=== PATIENT | male | born 1995 | race Caucasian/White ===

== ENCOUNTER 2024-10-04 16:46 | Inpatient (IN) ==
[2024-10-04 18:48] LABS: Basophils # (auto) 0.04 K/uL (0.00-0.20); Basophils % (auto) 0.9 %; Eosinophils % (auto) 2.3 %; Hematocrit (blood only) 40.9 % (42.0-52.0); Hemoglobin 13.2 g/dl (14.0-18.0); Immature Granulocytes # (auto) 0.01 K/uL (0.01-0.20); Immature Granulocytes % (auto) 0.2 %; Lymphocytes % (auto) 39.3 %; Mean Corpuscular Hgb Conc 32.3 g/dL (32.0-36.0); Mean Corpuscular Volume 71.4 fL (80.0-100.0); Mean Platelet Volume 9.1 fL (9.4-12.4); Monocytes # (auto) 0.25 K/uL (0.11-0.59); Monocytes % (auto) 5.8 %; Neutrophils # (auto) 2.23 K/uL (1.40-6.50); Neutrophils % (auto) 51.5 %; Platelet Count 375 K/uL (130-400); RDW Coefficient of Variation 14.8 % (11.5-14.5); RDW Standard Deviation 37.4 fL (36.4-46.3); Red Blood Count 5.73 M/uL (4.70-6.10); White Blood Count 4.33 K/ul (4.8-10.8)
[2024-10-04 18:55] LABS: Anion Gap 9 (3-11); BUN Creatinine Ratio 13.3 (10-20); Blood Urea Nitrogen 14 mg/dl (6-23); Calcium 9.4 mg/dl (8.6-10.3); Carbon Dioxide 25 mmol/L (21-32); Chloride 104 mmol/L (98-107); Creatinine Clr Calc Pharmacy 116.3 ml/min; Glucose 87 mg/dl (70-99(Fasting)); Potassium 4.4 mmol/L (3.5-5.1); Sodium 138 mmol/L (136-145)
[2024-10-04 19:07] LABS: Prothrombin Time 10.8 Seconds (9.0-12.0)
[2024-10-04] MEDS: OPTIRAY 320 125ml IV ONE (19:10)
--- NOTE | 2024-10-04 19:36 | Emergency Department Note ---
Impression & Plan Vision loss, left eye, Symptoms of cerebrovascular accident (CVA), Personal history of DVT (deep vein thrombosis) ED Provider Note CHIEF COMPLAINT: Left eye vision loss x 3 days 28-year-old male patient with past medical history of DVT/PE on Xarelto, cocaine and K2 use patient presents to the emergency department with complaints of left eye vision loss x 3 days. The patient is currently at [facility] for inpatient drug rehabilitation. He states he was not very compliant with his medications prior to his admission however was definitely off of his Xarelto x 3-4 days in the interim. He states they have been treating her for pinkmerae with antibiotic eyedrops however today he states he was begging the physician for transfer to the hospital. He denies any recent substance use since he has been in rehab x 10 days. He denies any headache, trauma, other known eye pathology, he denies taking any blood pressure medications. REVIEW OF SYSTEMS: A review of systems was performed with positives and pertinent negatives listed in the history of present illness. 10 systems were reviewed and are otherwise negative. ALLERGIES: see below MEDICATIONS: see below PMH: see below SOCIAL HISTORY: see below DDx: Central retinal artery occlusion, central retinal vein occlusion, acute glaucoma, retinal detachment, vitreous hemorrhage among others. PHYSICAL EXAM: Vital signs reviewed. Noted to be hypertensive. General: Well-appearing 28-year-old male, in no significant distress. HEENT: No scleral icterus, PERRLA, neck supple. Left eye conjunctival injection, EOMI. Cardiovascular: Regular rate and rhythm, no extra sounds. Pulmonary: Clear to auscultation bilaterally, normal work of breathing. Abdomen: Soft, nontender, nondistended, positive bowel sounds. Musculoskeletal: Atraumatic, no peripheral edema. Neurologic: Patient awake alert and oriented x 3, speech is clear. Cranial nerves II through XII are grossly intact. Negative pronator drift. Intact [id number]. Moves all extremities equally. Skin: Warm, dry, no rash EMERGENCY DEPARTMENT COURSE/MDM: This patient was evaluated and appeared to be in no significant distress. IV access was obtained and laboratory work was drawn. The patient was placed on the director cardiac noted to be in a normal sinus rhythm. Blood pressure was noted to be elevated. Patient's visual acuity is normal in the right eye, 20/200 in the left eye. Intraocular pressures are approximately 13 bilaterally. Slit-lamp exam was performed by Graciela Zaragoza PA-C and fairly normal by report. Please see her notes for further documentation. Retinal scans were performed and to my interpretation revealed no evidence of retinal detachment. There is no ophthalmology coverage at our facility this evening. As the patient symptoms have been present for 3 days and he is currently back on his anticoagulation, there did not seem to be any urgency to the consultation however I have greater concerns over the possibility of embolic stroke causing the patient's symptoms. CT angiogram of the head was performed and reveals no aneurysm or large vessel occlusion, there is no evidence of acute intracranial pathology. I did discuss the findings with Dr. Pascual of the hospitalist service who was agreed to evaluate the patient for admission and further management. The patient is aware of the plan and agrees. MONITORING: An order for cardiac monitoring was placed and the patient is noted to be in a normal sinus rhythm at 64 beats per minute. RADIOLOGY: Head CT to my interpretation reveals no evidence of acute intracranial abnormality. Otherwise defer to radiology's over read. CT angio of the head per radiology reveals no aneurysm or large vessel occlusion. EKG: To my interpretation reveals normal sinus rhythm at 62 bpm, QTc of 412. ST segment elevation consistent with early repolarization. No PVC, no PAC. DISPOSITION: Admission Past Med/Surg History Problem List (Updated 10/05/24 @ 02:36 by Anna Rodriguez MD) Personal history of DVT (deep vein thrombosis) (Acute) Symptoms of cerebrovascular accident (CVA) (Acute) Hypertension VTE (venous thromboembolism) Vision loss, left eye (Acute) Medical History DVT (deep venous thrombosis) Pulmonary embolism Surgical History No significant past surgical history Family History Other Family history non-contributory Social History Smoking Status: Current every day smoker Tobacco Type: E-cigarettes / Vaping Hx Alcohol Use: No Hx Substance Use: Yes Last Used Substance: Days (ago) Last Used Substance Other:: 10 days (?) Preferred Language: French Communication Ability: Effective Food Tester Required: No Beliefs That Will Affect Care: None Current Living Situation Comment: currently at inpatient drub rehab but lives in [place] with and kids Feels Safe at Home: Yes Assistive Devices: None Allergies Allergies Allergy/AdvReac Type Severity Reaction Status Date / Time No Known Drug Allergies Allergy Mild Verified 10/04/24 22:26 Home Meds Home Medications Medication Instructions Recorded Confirmed rivaroxaban 20 mg tablet (Xarelto) 20 mg PO DAILY 10/04/24 10/04/24 Results & Data (ED) Vital Signs Vital Signs - 24 hr 10/04/24 16:51 10/04/24 18:36 10/04/24 19:00 Temperature 36.9 C Temperature Source Temporal Artery Scan Pulse Rate 86 69 Pulse Rate [Apical] 64 Pulse Rhythm [Apical] Regular Pulse Strength [Apical] Normal Respiratory Rate 19 20 Respiratory Effort / Characteristics Non-Labored Spontaneous Non-Labored Spontaneous Respiratory Depth Normal Normal Respiratory Pattern Regular Blood Pressure 168/115 H Blood Pressure [Right Arm] 146/106 H Blood Pressure Mean 132 Blood Pressure Mean [Right Arm] 119 Blood Pressure Position [Right Arm] Lying Pulse Oximetry 99 98 Oxygen Delivery Method Room Air Sepsis Recent Fever Within 48 Hours No Sepsis New/Unexplained Change in Mental Status N/A Sepsis Action Taken by Nursing No Action Required 10/04/24 21:28 Temperature Temperature Source Pulse Rate Pulse Rate [Apical] 56 L Pulse Rhythm [Apical] Regular Pulse Strength [Apical] Normal Respiratory Rate 20 Respiratory Effort / Characteristics Non-Labored Spontaneous Respiratory Depth Normal Respiratory Pattern Regular Blood Pressure Blood Pressure [Right Arm] 157/119 H Blood Pressure Mean Blood Pressure Mean [Right Arm] 131 Blood Pressure Position [Right Arm] Lying Pulse Oximetry 97 Oxygen Delivery Method Room Air Sepsis Recent Fever Within 48 Hours Sepsis New/Unexplained Change in Mental Status Sepsis Action Taken by Fdc Medications Current Medication List: was personally reviewed by me Laboratory Data Attestation: I reviewed the patient's lab results. 10/04/24 18:10 10/04/24 18:10 Lab Results 10/04/24 Range/Units 18:10 WBC 4.33 L (4.8-10.8) K/ul RBC 5.73 (4.70-6.10) M/uL Hgb 13.2 L (14.0-18.0) g/dl Hct 40.9 L (42.0-52.0) % MCV 71.4 L (80.0-100.0) fL MCH 23.0 L (25.0-34.0) pg MCHC 32.3 (32.0-36.0) g/dL RDW Std Deviation 37.4 (36.4-46.3) fL RDW Coeff of Simona 14.8 H (11.5-14.5) % Plt Count 375 (130-400) K/uL MPV 9.1 L (9.4-12.4) fL Immature Gran % (Auto) 0.2 % Neut % (Auto) 51.5 % Lymph % (Auto) 39.3 % [place] % (Auto) 5.8 % Eos % (Auto) 2.3 % Baso % (Auto) 0.9 % Neut # (Auto) 2.23 (1.40-6.50) K/uL Lymph # (Auto) 1.70 (1.20-3.40) K/uL [place] # (Auto) 0.25 (0.11-0.59) K/uL Eos # (Auto) 0.10 (0.00-0.50) K/uL Baso # (Auto) 0.04 (0.00-0.20) K/uL Immature Gran # (Auto) 0.01 (0.01-0.20) K/uL ESR 20 H (0-15) mm/hr PT 10.8 (9.0-12.0) Seconds INR 1.0 (0.9-1.1) Sodium 138 (136-145) mmol/L Potassium 4.4 (3.5-5.1) mmol/L Chloride 104 (98-107) mmol/L Carbon Dioxide 25 (21-32) mmol/L Anion Gap 9 (3-11) BUN 14 (6-23) mg/dl Creatinine 1.05 (0.6-1.4) mg/dl Est Cr Clr Drug Dosing 116.3 ml/min eGFR 97.93 BUN/Creatinine Ratio 13.3 (10-20) Glucose 87 (70-99(Fasting)) mg/dl Calcium 9.4 (8.6-10.3) mg/dl C-Reactive Protein < 0.50 (0-0.5) mg/dl Administered Medications Discontinued Medications Gadobutrol (Gadobutrol 65ml Vial) 9 ml IV ONCE ONE Stop: 11/18/24 00:45 Last Admin: 10/05/24 00:44 Dose: 9 ml Documented By: CATHERINE Ioversol (Optiray 320 125ml) 115 ml IV ONCE ONE Stop: 10/04/24 19:10 Last Admin: 10/04/24 19:10 Dose: 115 ml Documented By: CHRISTOPHER Imaging Data Radiologist's Impression: Head CT 10/04/24 18:06 CR Exam(s): CT HEAD Without Contrast EXAM: CT Head Without Intravenous Contrast CLINICAL HISTORY: Reason for exam: vision loss L eye 3 days. TECHNIQUE: Axial computed tomography images of the head/brain without intravenous contrast. CTDI is 65.32 mGy and DLP is 961.59 mGy-cm. Automated exposure control was utilized for the study. A dose lowering technique was utilized adhering to the principles of ALARA. COMPARISON: None. FINDINGS: Brain: No mass effect or acute infarct. No acute hemorrhage. No abnormal density in the brain parenchyma. Ventricles: No hydrocephalus or midline shift. Bones/joints: No skull fracture. Soft tissues: No scalp hematoma. Visualized Sinuses: Clear. Mastoid air cells: No mastoid effusion. IMPRESSION: 1. No acute intracranial abnormality. Communications: Call Doctor Stroke Electronically signed by: Laura Benitez M.D. 10/04/24 20:34 PM Head CTA 10/04/24 18:06 CR Exam(s): CTA HEAD With Contrast IV Amt: 115 ml optiray 320 EXAM: CT Angiography Head With Intravenous Contrast CLINICAL HISTORY: Reason for exam: L eye vision loss x 3 days. TECHNIQUE: Axial computed tomographic angiography images of the head with intravenous contrast. CTDI is 99.14 mGy and DLP is 1115.24 mGy-cm. Automated exposure control was utilized for the study. A dose lowering technique was utilized adhering to the principles of ALARA. MIP reconstructed images were created and reviewed. CONTRAST: Patient received 115 ml optiray 320 of IV contrast COMPARISON: Head CT done earlier. FINDINGS: Right internal carotid artery: Patent. Right anterior cerebral artery: Patent. Right middle cerebral artery: Patent. Right posterior cerebral artery: Patent. Right vertebral artery: Patent. Left internal carotid artery: Patent. Left anterior cerebral artery: Patent. Left middle cerebral artery: Patent. Left posterior cerebral artery: Patent. Left vertebral artery: Patent. Basilar artery: Patent. Other: IMPRESSION: 1. No aneurysm or large vessel occlusion. Communications: Call Doctor Stroke Electronically signed by: Laura Benitez M.D. 10/04/24 20:36 PM Discharge Plan Visit Data Chief Complaint: Eye Problems Stated Complaint: LOST SIGHT IN L EYE ED Provider: Anna Rodriguez Discharge Problem: Vision loss, left eye, Symptoms of cerebrovascular accident (CVA), Personal history of DVT (deep vein thrombosis) Patient Disposition: Admitted As Inpatient Discharge Instructions Interventions: ED Discharge Assessment Last Done: 10/04/24 23:08
--- NOTE | 2024-10-04 20:27 | Emergency Department Note ---
ED Visit Note EMERGENCY DEPARTMENT PROCEDURE NOTE: I was asked by Dr. Rodriguez to perform slit-lamp and puff tonometry on this 28-year-old patient who presented to the emergency department with acute loss of vision in the left eye 3 days ago. Slit-lamp examination revealed no hyphema. Puff tonometry noted average intraocular pressure on the right 13, left 12.5.
--- NOTE | 2024-10-04 20:36 | CT Scan Report ---
Exam(s): CT HEAD Without Contrast EXAM: CT Head Without Intravenous Contrast CLINICAL HISTORY: Reason for exam: vision loss L eye 3 days. TECHNIQUE: Axial computed tomography images of the head/brain without intravenous contrast. CTDI is 65.32 mGy and DLP is 961.59 mGy-cm. Automated exposure control was utilized for the study. A dose lowering technique was utilized adhering to the principles of ALARA. COMPARISON: None. FINDINGS: Brain: No mass effect or acute infarct. No acute hemorrhage. No abnormal density in the brain parenchyma. Ventricles: No hydrocephalus or midline shift. Bones/joints: No skull fracture. Soft tissues: No scalp hematoma. Visualized Sinuses: Clear. Mastoid air cells: No mastoid effusion. IMPRESSION: 1. No acute intracranial abnormality. Communications: Call Doctor Stroke Electronically signed by: Laura Benitez M.D. 10/04/24 20:34 PM
--- NOTE | 2024-10-04 20:37 | CT Scan Report ---
Exam(s): CTA HEAD With Contrast IV Amt: 115 ml optiray 320 EXAM: CT Angiography Head With Intravenous Contrast CLINICAL HISTORY: Reason for exam: L eye vision loss x 3 days. TECHNIQUE: Axial computed tomographic angiography images of the head with intravenous contrast. CTDI is 99.14 mGy and DLP is 1115.24 mGy-cm. Automated exposure control was utilized for the study. A dose lowering technique was utilized adhering to the principles of ALARA. MIP reconstructed images were created and reviewed. CONTRAST: Patient received 115 ml optiray 320 of IV contrast COMPARISON: Head CT done earlier. FINDINGS: Right internal carotid artery: Patent. Right anterior cerebral artery: Patent. Right middle cerebral artery: Patent. Right posterior cerebral artery: Patent. Right vertebral artery: Patent. Left internal carotid artery: Patent. Left anterior cerebral artery: Patent. Left middle cerebral artery: Patent. Left posterior cerebral artery: Patent. Left vertebral artery: Patent. Basilar artery: Patent. Other: IMPRESSION: 1. No aneurysm or large vessel occlusion. Communications: Call Doctor Stroke Electronically signed by: Laura Benitez M.D. 10/04/24 20:36 PM
--- NOTE | 2024-10-04 22:42 | History & Physical Report ---
Date of Service October 04, 2024 Assessment & Plan (1) Vision loss, left eye: Plan: 28yo male with history of VTE on Xarelto anticoagulation presenting with visual loss in the left eye. Patient missed several doses of his Xarelto earlier in the month and was taking it sporadically prior to that but has been taking it daily since 09/26/24. Vision loss in left eye preceded by 3 days of redness, tearing, pain and blurry vision. Visual acuity 20/200 in LEFT eye. Slit lamp exam with no Hyphema. Eye pressure LEFT eye 12.5. Ddx to include: ocular stroke, CRAO, CRVO - concerning in patient with h/o prior VTE and non-adherence with his anticoagulation. Possible uveitis, optic neuritis -Admit to medical with telemetry -Check ESR, CRP although patient young for GCA -Check MRI brain - visualize optic nerve. 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 He is to be taking Xarelto 20mg po daily, reports he has been non-compliant with this medication in the past. -Continue Xarelto 20mg po daily -Continue outpatient followup with Hematology in [place], [place] as directed (3) Hypertension: Plan: Patient with elevated blood pressure. Was prescribed Amlodipine in the past but has not been taking it -Resume Amlodipine 5mg po daily -Monitor BP Plan Patient is from [place], [place] - voluntarily attending drug rehabilitation program at [facility]. He wants to return home to [place] - states that there is a bus that leaves [place] on Saturday, 10/06 at 06:00 that he wants to be on. He will need to return to [facility] to collect his belongings prior to leaving. History of Present Illness Chief Complaint: visual loss left eye Primary Care Provider: NO PCP Shant Prabhakar is a 28yo male presenting with visual loss in the left eye. Patient with history of prior VTE - diagnosed with Pulmonary Emboli in 2016 and started on Xarelto. Patient admits to medication non-adherence. He was diagnosed with LE DVT in 2022 but was not taking his Xarelto as prescribed. He does not recall having a hypercoagulability panel performed in the past. He does follow with Hematology in [place] and is on lifelong anticoagulation due to recurrent VTE. Mr. Prabhakar is from [place], [place]. He is voluntarily attending drug rehab at [facility] for cocaine and K2 abuse. He arrived at [facility] on 09/22 and reports that he did not get his Xarelto until 09/25 or 09/26 but has been taking it daily as directed since 09/26. On 10/01 patient developed redness and pain in the left eye. He was told that he had pink eye and was prescribed Gentamicin eye drops which he used with no improvement. He reports his symptoms progressed with increasing blurriness to his vision. He saw a physician on 10/03/24 and was started on Keflex for presumed eye infection. He took a couple of doses but then developed some nausea. This morning when patient woke up he was unable to see anything out of his left eye. Patient reports redness, tearing of the left eye. Pain in the eye, pain with eye movement and pain under the left eye. He also has a dull left sided headache. No trauma to the eye. No history of eye disease. Does admit to some cramping in his thighs and calfs lately. He denies fever, chills, chest pain, palpitations, nausea, vomiting, abdominal pain. No numbness, tingling, weakness. Patient with no history of IVDU. Does not wear contacts. No known family history of VTE or sickle cell disease/trait Slit lamp examination performed by ER - revealed no hyphema Puff tonometry with average IOP on RIGHT 13 and LEFT 12.5 Allergies Allergy/AdvReac Type Severity Reaction Status Date / Time No Known Drug Allergies Allergy Mild Verified 10/04/24 22:26 Home Medications Medication Instructions Recorded Confirmed Type rivaroxaban 20 mg tablet (Xarelto) 20 mg PO DAILY 10/04/24 10/04/24 History Past Med/Surg History Problem List (Updated 10/04/24 @ 22:34 by Azeb Pascual DO) Hypertension VTE (venous thromboembolism) Vision loss, left eye Medical History (Updated 10/04/24 @ 22:34 by Azeb Pascual DO) DVT (deep venous thrombosis) Pulmonary embolism Surgical History (Updated 10/04/24 @ 22:28 by Azeb Pascual DO) No significant past surgical history Family History (Updated 10/04/24 @ 22:28 by Azeb Pascual DO) Other Family history non-contributory Social History (Updated 10/04/24 @ 22:28 by Azeb Pascual DO) Smoking Status: Unknown if ever smoked Tobacco Type: E-cigarettes / Vaping Hx Alcohol Use: No Hx Substance Use: Yes Preferred Language: Mohawk Feels Safe at Home: Yes Review of Systems Review of Systems: All systems reviewed & are unremarkable except as noted in HPI & below Physical Exam Physical Exam: General: patient resting comfortably, NAD, non-toxic in appearance, AA&O x 4 Skin: warm, dry, intact, no rashes or lesions HEENT: NC/AT, PERRL, EOMI, anicteric sclera, external ear normal to inspection and nontender, nares patent, moist mucus membranes, dentition intact, no oropharyngeal lesions, neck supple, trachea midline, no LAD, no thyromegaly, no JVD Left eye with mild palpebral edema, +tearing +redness EOMI, pupil reactive to light. Limited bedside fundoscopic exam appear to have normal vasculature, unable to visualize optic disc Heart: +S1/S2, regular, no m/r/g Lungs: equal air entry bilaterally, no rales/rhonchi/wheezes Abd: +BS, soft, NT/ND, no masses/organomegaly/ascites Ext: warm, 2+ pulses in UE/LE bilaterally, no clubbing/cyanosis or edema Neuro: nonfocal, patient AA&O x 4, speech intact, no facial droop, moving all extremities on command with equal strength 5/5 Results & Data Results & Data Vital Signs (Past 12 Hours) Vital Signs Temp Pulse Pulse Resp BP BP Pulse Ox 10/04/24 21:28 56 L 20 157/119 H 97 10/04/24 19:00 64 20 146/106 H 98 10/04/24 18:36 69 10/04/24 16:51 36.9 C 86 19 168/115 H 99 O2 Del Method 10/04/24 21:28 Room Air 10/04/24 19:00 Room Air 10/04/24 18:36 10/04/24 16:51 Laboratory Results Laboratory Results WBC 4.33 K/ul (4.8-10.8) L 10/04/24 18:10 RBC 5.73 M/uL (4.70-6.10) 10/04/24 18:10 Hgb 13.2 g/dl (14.0-18.0) L 10/04/24 18:10 Hct 40.9 % (42.0-52.0) L 10/04/24 18:10 MCV 71.4 fL (80.0-100.0) L 10/04/24 18:10 MCH 23.0 pg (25.0-34.0) L 10/04/24 18:10 MCHC 32.3 g/dL (32.0-36.0) 10/04/24 18:10 RDW Std Deviation 37.4 fL (36.4-46.3) 10/04/24 18:10 RDW Coeff of Simona 14.8 % (11.5-14.5) H 10/04/24 18:10 Plt Count 375 K/uL (130-400) 10/04/24 18:10 MPV 9.1 fL (9.4-12.4) L 10/04/24 18:10 Immature Gran % (Auto) 0.2 % 10/04/24 18:10 Neut % (Auto) 51.5 % 10/04/24 18:10 Lymph % (Auto) 39.3 % 10/04/24 18:10 [place] % (Auto) 5.8 % 10/04/24 18:10 Eos % (Auto) 2.3 % 10/04/24 18:10 Baso % (Auto) 0.9 % 10/04/24 18:10 Neut # (Auto) 2.23 K/uL (1.40-6.50) 10/04/24 18:10 Lymph # (Auto) 1.70 K/uL (1.20-3.40) 10/04/24 18:10 [place] # (Auto) 0.25 K/uL (0.11-0.59) 10/04/24 18:10 Eos # (Auto) 0.10 K/uL (0.00-0.50) 10/04/24 18:10 Baso # (Auto) 0.04 K/uL (0.00-0.20) 10/04/24 18:10 Immature Gran # (Auto) 0.01 K/uL (0.01-0.20) 10/04/24 18:10 PT 10.8 Seconds (9.0-12.0) 10/04/24 18:10 INR 1.0 (0.9-1.1) 10/04/24 18:10 Sodium 138 mmol/L (136-145) 10/04/24 18:10 Potassium 4.4 mmol/L (3.5-5.1) 10/04/24 18:10 Chloride 104 mmol/L (98-107) 10/04/24 18:10 Carbon Dioxide 25 mmol/L (21-32) 10/04/24 18:10 Anion Gap 9 (3-11) 10/04/24 18:10 BUN 14 mg/dl (6-23) 10/04/24 18:10 Creatinine 1.05 mg/dl (0.6-1.4) 10/04/24 18:10 Est Cr Clr Drug Dosing 116.3 ml/min 10/04/24 18:10 eGFR 97.93 10/04/24 18:10 BUN/Creatinine Ratio 13.3 (10-20) 10/04/24 18:10 Glucose 87 mg/dl (70-99(Fasting)) 10/04/24 18:10 Calcium 9.4 mg/dl (8.6-10.3) 10/04/24 18:[address] 10/04/24 18:06 CR Exam(s): CT HEAD Without Contrast EXAM: CT Head Without Intravenous Contrast CLINICAL HISTORY: Reason for exam: vision loss L eye 3 days. TECHNIQUE: Axial computed tomography images of the head/brain without intravenous contrast. CTDI is 65.32 mGy and DLP is 961.59 mGy-cm. Automated exposure control was utilized for the study. A dose lowering technique was utilized adhering to the principles of ALARA. COMPARISON: None. FINDINGS: Brain: No mass effect or acute infarct. No acute hemorrhage. No abnormal density in the brain parenchyma. Ventricles: No hydrocephalus or midline shift. Bones/joints: No skull fracture. Soft tissues: No scalp hematoma. Visualized Sinuses: Clear. Mastoid air cells: No mastoid effusion. IMPRESSION: 1. No acute intracranial abnormality. Communications: Call Doctor Stroke Electronically signed by: Laura Benitez M.D. 10/04/24 20:34 PM Head CTA 10/04/24 18:06 CR Exam(s): CTA HEAD With Contrast IV Amt: 115 ml optiray 320 EXAM: CT Angiography Head With Intravenous Contrast CLINICAL HISTORY: Reason for exam: L eye vision loss x 3 days. TECHNIQUE: Axial computed tomographic angiography images of the head with intravenous contrast. CTDI is 99.14 mGy and DLP is 1115.24 mGy-cm. Automated exposure control was utilized for the study. A dose lowering technique was utilized adhering to the principles of ALARA. MIP reconstructed images were created and reviewed. CONTRAST: Patient received 115 ml optiray 320 of IV contrast COMPARISON: Head CT done earlier. FINDINGS: Right internal carotid artery: Patent. Right anterior cerebral artery: Patent. Right middle cerebral artery: Patent. Right posterior cerebral artery: Patent. Right vertebral artery: Patent. Left internal carotid artery: Patent. Left anterior cerebral artery: Patent. Left middle cerebral artery: Patent. Left posterior cerebral artery: Patent. Left vertebral artery: Patent. Basilar artery: Patent. Other: IMPRESSION: 1. No aneurysm or large vessel occlusion. Communications: Call Doctor Stroke Electronically signed by: Laura Benitez M.D. 10/04/24 20:36 PM ECG Additional Comments: EKG with NSR at 62bpm, sinus arrhythmia, early repolarization, no acute ischemic changes Code Status & VTE Plan VTE Prophylaxis Plan VTE Prophylaxis will be ordered: Yes PG Care Time/CCT Total # of Minutes Spent Total Time Spent with Patient: Total time spent is greater than 50% in coordination of care (as documented) at patient's floor/unit and/or counseling patient: Coding Level of Care Code 01445 INT INP/OBS CARE 3/75MIN Diagnoses Vision loss, left eye H54.62 VTE (venous thromboembolism) I82.90 Hypertension I10
--- NOTE | 2024-10-05 00:36 | Ultrasound Report ---
EXAM: US venous doppler LE BI CLINICAL HISTORY: HX: NO PREV. RLE: NONOCCLUSIVE DVT IN 1 OF 2 POP VEINS AND 1 OF 2 PTV. LLE: NO OBVIOUS DVT TECHNIQUE: Bilateral lower extremity venous Doppler with reflux is performed. COMPARISON: None. FINDINGS: The superficial and deep venous system of both lower limbs is scanned. The examined deep venous system veins include the common femoral vein, femoral vein, and popliteal vein. The examined superficial venous system veins include a great saphenous vein proximal mid and distal above and below the knee, and a superficial small saphenous vein proximal mid and distal. There is normal vein compressibility at all levels. Also, there is normal flow at all levels. No intraluminal abnormality of thrombosis. IMPRESSION: No evidence of superficial and deep venous thrombosis. DISCLAIMER:DVT could be missed early in the disease when clot burden is minimal. For patients with moderate and high pretest probability of DVT and negative ultrasound, the [employer] clinical guidelines recommend testing with a D-dimer assay or repeat ultrasound in 5-7 days. If symptoms worsen, the Society of Radiologists in Ultrasound recommends repeating the ultrasound even earlier. Electronically signed by Rafal Thapa 10-05-2024 12:36 AM
[2024-10-05] MEDS: GADOBUTROL 65ML VIAL IV ONE (00:44)
[2024-10-05] MEDS ORDERED: ONDANSETRON INJ 2 MG/ML 2 ML VIAL IV PRN (01:13)
[2024-10-05 01:30] LABS: C Reactive Protein < 0.50 mg/dl (0-0.5)
--- NOTE | 2024-10-05 06:31 | Electrocardiogram Report ---
Test Reason : Blood Pressure : */* mmHG Vent. Rate : 62 BPM Atrial Rate : 62 BPM P-R Int : 162 ms QRS Dur : 92 ms QT Int : 406 ms P-R-T Axes : 58 59 45 degrees QTcB Int : 412 ms Normal sinus rhythm with sinus arrhythmia Early repolarization Normal ECG No previous ECGs available Confirmed by Virgil Freeman ([id number]) on 10/05/2024 6:31:14 AM Referred By: REFERRED SELF Confirmed By: Virgil Freeman
--- NOTE | 2024-10-05 07:00 | Magnetic Resonance Report ---
EXAM: MR brain wo/w con CLINICAL HISTORY: loss of vision left eye x 3 days. no other symptoms. no recent head trauma. no dizziness. no headache room 289. CT head 10/04. no previous MRI head here. 260 images TECHNIQUE: MRI of the brain was performed with and without intravenous contrast administration. Sequences obtained include pre-contrast and post-contrast T1-weighted, T2-weighted, FLAIR (Fluid-Attenuated Inversion Recovery), DWI (Diffusion-Weighted Imaging), and ADC (Apparent Diffusion Coefficient) sequences. COMPARISON: No previous studies are available for comparison. FINDINGS: Brain Parenchyma: No evidence of acute infarction or hemorrhage. Holland-white matter differentiation is preserved. No abnormal signal-intensity lesions were identified. Post-Contrast Findings: No abnormal enhancement of the brain parenchyma or meninges. Ventricles and Sulci: The ventricular system is within normal limits without evidence of hydrocephalus. Sulci and cisternal spaces are age-appropriate. Brainstem and Cerebellum: Normal appearance of the brainstem and cerebellum without focal lesions or abnormal enhancement. Vessels and venous sinuses: Intracranial vessels appear normal without evidence of vascular malformations or aneurysms. Orbits and Skull Base: Minimal fluid surrounding the distal part of the optic nerve, more on the left seen in T2 [place]. This finding could be related to papilloedema. No evidence of skull vault lesions or abnormal marrow signals within the calvarium. Additional findings : A small retention cyst was seen in the right maxillary sinus, measuring about 1.5 cm. IMPRESSION: 1. Evidence of mainly left optic nerve dural mild fluid. This finding could be related to papilloedema. It needs clinical correlation and further assessment as clinically needed. 2. Unremarkable rest of study. Electronically signed by Rafal Thapa 10-05-2024 06:59 AM
[2024-10-05] MEDS: amLODIPine BESYLATE 5 MG TAB PO SCH (08:53)
[2024-10-05] MEDS: RIVAROXABAN 20 MG TAB PO SCH (08:53)
--- NOTE | 2024-10-05 11:07 | XCELERA ---
[id number] \\[id number]-[facility]\[id number]_[id number]
--- NOTE | 2024-10-05 14:15 | Hospitalist Progress Note ---
Date of Service October 05, 2024 Assessment & Plan (1) Vision loss, left eye: Plan: Shant Prabhakar is a 28 year old male with a past medical hx of PE and DVT on Xarelto who presented to the ED with a 4 day history of left eye pain and vision loss. - Persistent pain and blurred vision, loss of color vision, pain with eye movements - Slit lamp exam with no hyphema - Brain MRI showed no evidence of acute infarction or hemorrhage, evidence of mainly left optic nerve dural mild fluid, could be related to papilledema - MCV low at 71.4, but Hgb 13.2 - Ophthalmology saw him today with the following notes: "The patient most likely has optic neuritis of the left eye. Patient can be given 1 g of IV Solu-Medrol daily for 3 days and then sent home on an oral prednisone taper versus just observation. 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 He is to be taking Xarelto 20mg po daily, reports he has been non-compliant with this medication in the past. - PT and INR WNL -Continue Xarelto 20mg po daily -Continue outpatient followup with hematology in [place], [place] (3) Hypertension: Plan: Patient has elevated BP in hospital, prescribed Amlodipine in the past by family doctor but has not been taking it -Resume Amlodipine 5mg po daily -Monitor BP Admission and Anticipated Discharge Date Admission Date: October 04, 2024 Subjective Shant Prabhakar is a 28 year old male with a past medical hx of PE and DVT on Xarelto who presented to the ED with a 4 day history of left eye pain and vision loss. - First noticed eye discharge and discomfort on 10/01 or 10/02 - Treated with eyedrops at [facility], no relief, given antibiotics - Pain got worse over days, black floaters in vision, light sensitivity, pain with eye movements, vision loss over time - No hx of inflammatory conditions, no recent eye injuries, has never had similar sx in the past - Hx of plastic plate hitting the left eye at age 10 and caused some damage to retina that he doesn't know much about - After using eyedrops, had drainage that consisted of blood mixed with tears - Presented to ED on 10/04 - Currently has left eye blurry vision, loss of color vision, burning, light sensitivity - No symptoms in right eye - Smoked cigarettes 1/2 ppd for 10+ years, now primarily vapes for the past 1 year - Last used cocaine/K2 around 09/22, used an 8 ball of cocaine /day and 3.5 grams of K2/day - Has hx of DVT 2022 and PE in 2016, on Xarelto but missed a few days when he first went to rehab - Elevated BP in hospital, previously prescribed amlodipine but has not been taking Review of Systems Review of Systems: All systems reviewed & are unremarkable except as noted in Subjective Eyes: as per Subjective / HPI, + discharge, + eye pain, + photophobia and + spots in vision Physical Exam Constitutional: well developed and well nourished Eyes: Left eye conjunctiva injected, extraocular movements intact, PERRLA ENMT: external ear and nose normal, oropharynx normal Neck: trachea midline, no thyromegaly Respiratory: normal respiratory effort, lungs clear to auscultation Cardiovascular: RRR, no murmur, no edema Results & Data Results & Data Vital Signs (Past 12 Hours) Vital Signs Temp Pulse Pulse Pulse Resp BP Pulse Ox 10/05/24 04:08 36.6 C 65 16 119/72 98 10/05/24 01:29 10/05/24 01:00 62 10/05/24 00:54 36.5 C 60 16 154/107 H 99 10/04/24 23:00 56 L 20 139/91 100 10/04/24 21:28 56 L 20 157/119 H 97 O2 Del Method 10/05/24 04:08 Room Air 10/05/24 01:29 Room Air 10/05/24 01:00 10/05/24 00:54 Room Air 10/04/24 23:00 Room Air 10/04/24 21:28 Room Air Resident Activity Tracking Resident Involvement: Resident Care Provided Care Provided: Adult [facility] Medicine Resident Supervision Co-Signing Physician Notes I independently saw and examined this patient myself. Shant is a 28 year old male with a past history of PE and DVT on Xarelto who presented to the ED with a 4 day history of gradual left eye pain and vision loss. He mentions balck floaters in left eye as well. Right eye is fine. He says he had missed Xarelto for 4 days recently due to transition from home to rehab. Tried eye drops and antibiotics before, did not help. Rather progressed the vision loss. He mentions remote h/o Suboxone use through left eye. No h/o fever, SOB, chest pain, loss of consciousness, muscle weakness or any other focal deficit. O/E: Anxious looking, EOM intact. Erythematous BL eyes, Left > Right, BL pupils equal, regular and reactive. Heart and lungs: BL equal air entry, S1S2 no murmur. Vitals: BP 141/99 , rest fine MRI : ? papilledema, fluid collection around left optic N CT head, CT angio neck, CT angio head: No abnormality Plan: Continue Rivaroxaban as previous Continue Amlodipine 5 mg once daily Ophthalmology consult STAT. 12:30: Patient wanted to leave AMA as he says he needs to be at home helping family. Counselled possibility of vision loss progression to other eye, infection progression to brain and nearby structure, Stroke ,[place] , . He persistently refused further admission 1:00 pm: He called rehab center; they refused to help him if he leaves AMA. Now patient agreeable to stay. I personally examined the patient and verified all barnes points of history and exam, discussed case, and agree with decision making with Dr Pearson and Racheal Louie MS2 feeling ok. saw twice today to discuss plans --> working dx and plans after ophthalmology input (greatly appreciated) vitals noted nad heent nc at mmm L eye red optic neuritis -idiopathic -solumedrol x 3 days -outpatient neuro had extensive d/w pt (and grandma was on phone with him at second visit) - initially he really wanted to get home, largely being so far from family and having twins and wanting to be with them - and we discussed ways to try to facilitate care with transition back home -but because this would leave loose ends we could not ensure the ability to be able to tie up, he opted to stay otherwise as above
--- NOTE | 2024-10-05 15:03 | Ophthalmology Consultation ---
Date of Consultation October 05, 2024 Assessment & Plan (1) Optic neuritis, posterior: The patient most likely has optic neuritis of the left eye. Patient can be given 1 g of IV Solu-Medrol daily for 3 days and then sent home on an oral prednisone taper versus just observation. The IV steroids with an 11-day oral taper after showed quicker visual recovery in studies, however, did not affect the overall visual prognosis. The patient stated to me that he plans to return home to [place]. I would recommend that he follow-up with an gis application developer within the next week to establish care. Plan The patient most likely has optic neuritis of the left eye. Patient can be given 1 g of IV Solu-Medrol daily for 3 days and then sent home on an oral prednisone taper versus just observation. The IV steroids with an 11-day oral taper after showed quicker visual recovery in studies, however, did not affect the overall visual prognosis. The patient stated to me that he plans to return home to [place]. I would recommend that he follow-up with an gis application developer within the next week to establish care. History of Present Illness Reason for Consultation: Decreased vision with pain with eye movements left eye Attending Physician: Laith Allen, DO History of Present Illness Patient reports a slow loss of vision over approximately 3 days of the left eye with pain with eye movements Allergies Allergy/AdvReac Type Severity Reaction Status Date / Time No Known Drug Allergies Allergy Mild Verified 10/04/24 22:26 Home Medications Medication Instructions Recorded Confirmed Type rivaroxaban 20 mg tablet (Xarelto) 20 mg PO DAILY 10/04/24 10/04/24 History Patient History Medical History DVT (deep venous thrombosis) Pulmonary embolism Surgical History No significant past surgical history Family History Other Family history non-contributory Social History Smoking Status: Current every day smoker Tobacco Type: E-cigarettes / Vaping Hx Alcohol Use: No Hx Substance Use: Yes Last Used Substance: Days (ago) Last Used Substance Other:: 10 days (?) Preferred Language: [place] Communication Ability: Effective Patient Registration Rep Required: No Beliefs That Will Affect Care: None Current Living Situation Comment: currently at inpatient [facility] rehab but lives in [place] with and kids Feels Safe at Home: Yes Assistive Devices: None Review of Systems Eyes: No APD was seen Extraocular movements were intact, had pain with upgaze of the left eye Constricted visual field left eye Visual acuity 20/30 in the right eye at near and 20/400 at 6 inches at near left eye Anterior segments were deep quiet and clear with trace injection of the left eye Clear lenses both eyes Both eyes dilated with 1% tropicamide at 2:36 PM On dilated fundus examinations the optic discs are healthy and pink with 0.5 cups and no evidence of any retinal disease Results & Data Vital Signs (Past 12 Hours) Vital Signs Temp Pulse Pulse Resp BP Pulse Ox O2 Del Method 10/05/24 14:23 69 10/05/24 11:43 36.6 C 71 20 141/99 H 100 Room Air 10/05/24 07:27 71 10/05/24 04:08 36.6 C 65 16 119/72 98 Room Air
[2024-10-05] MEDS ORDERED: methylPREDNISolone 1000 MG/16 ML IV SCH (15:30)
[2024-10-05] MEDS: methylPREDNISolone 1,000 MG in NSS 250 ML IV SCH (16:11)
--- NOTE | 2024-10-05 17:49 | Billing Data ---
Date of Service October 05, 2024 Coding Level of Care Code 86093 SUB INP/OBS CARE MIN
[2024-10-05] MEDS ORDERED: ACETAMINOPHEN 500 MG TAB PO PRN (21:57)
[2024-10-05] MEDS: ACETAMINOPHEN 500 MG TAB ONE (22:45)
--- NOTE | 2024-10-08 12:34 | Discharge Summary ---
"Date of Service October 08, 2024 Admission HPI Per Admitting Provider Shant Prabhakar is a 28yo male presenting with visual loss in the left eye. Patient with history of prior VTE - diagnosed with Pulmonary Emboli in 2016 and started on Xarelto. Patient admits to medication non-adherence. He was diagnosed with LE DVT in 2022 but was not taking his Xarelto as prescribed. He does not recall having a hypercoagulability panel performed in the past. He does follow with Hematology in [place] and is on lifelong anticoagulation due to recurrent VTE. Mr. Prabhakar is from [place], [place]. He is voluntarily attending drug rehab at [facility] for cocaine and K2 abuse. He arrived at [facility] on 09/22 and reports that he did not get his Xarelto until 09/25 or 09/26 but has been taking it daily as directed since 09/26. On 10/01 patient developed redness and pain in the left eye. He was told that he had pink eye and was prescribed Gentamicin eye drops which he used with no improvement. He reports his symptoms progressed with increasing blurriness to his vision. He saw a physician on 10/03/24 and was started on Keflex for presumed eye infection. He took a couple of doses but then developed some nausea. This morning when patient woke up he was unable to see anything out of his left eye. Patient reports redness, tearing of the left eye. Pain in the eye, pain with eye movement and pain under the left eye. He also has a dull left sided headache. No trauma to the eye. No history of eye disease. Does admit to some cramping in his thighs and calfs lately. He denies fever, chills, chest pain, palpitations, nausea, vomiting, abdominal pain. No numbness, tingling, weakness. Patient with no history of IVDU. Does not wear contacts. No known family history of VTE or sickle cell disease/trait Slit lamp examination performed by ER - revealed no hyphema Puff tonometry with average IOP on RIGHT 13 and LEFT 12.5 Admission Exam Per Admitting Provider General: patient resting comfortably, NAD, non-toxic in appearance, AA&O x 4 Skin: warm, dry, intact, no rashes or lesions HEENT: NC/AT, PERRL, EOMI, anicteric sclera, external ear normal to inspection and nontender, nares patent, moist mucus membranes, dentition intact, no oropharyngeal lesions, neck supple, trachea midline, no LAD, no thyromegaly, no JVD Left eye with mild palpebral edema, +tearing +redness EOMI, pupil reactive to l ight. Limited bedside fundoscopic exam appear to have normal vasculature, unable to visualize optic disc Heart: +S1/S2, regular, no m/r/g Lungs: equal air entry bilaterally, no rales/rhonchi/wheezes Abd: +BS, soft, NT/ND, no masses/organomegaly/ascites Ext: warm, 2+ pulses in UE/LE bilaterally, no clubbing/cyanosis or edema Neuro: nonfocal, patient AA&O x 4, speech intact, no facial droop, moving all extremities on command with equal strength 5/5 Principal Diagnosis Left Optinic Neuritis Discharge Exam Constitutional: well developed and well nourished Eyes: Left eye conjunctiva injected, extraocular movements intact, PERRLA ENMT: external ear and nose normal, oropharynx normal Neck: trachea midline, no thyromegaly Respiratory: normal respiratory effort, lungs clear to auscultation Cardiovascular: RRR, no murmur, no edema Discharge Data Allergies Allergy/AdvReac Type Severity Reaction Status Date / Time No Known Drug Allergies Allergy Mild Verified 10/04/24 22:26 Consultations 10/04/24 21:19 ED Decision to Admit Stat 10/04/24 22:01 Consult Ophthalmology Routine Ordered Studies 10/04/24 18:06 CT angio head w con Stat CT head/brain wo con Stat 10/04/24 22:01 US venous doppler LE BI Stat 10/05/24 00:24 MR brain wo/w con Routine Hospital Course (1) Vision loss, left eye: (2) VTE (venous thromboembolism): (3) Hypertension: Plan (1) Vision loss, left eye: - Ophthalmology: Optic neuritis of the left eye. -Planned for 1 g of IV Solu-Medrol daily for 3 days and then sent home on an oral prednisone taper versus just observation. - He decided AMA despite multiple counselling; received only one dose of Solu- Medrol at hospital. - Advised to go to ER once he reaches [place]( home) (2) VTE (venous thromboembolism): H/O VTE; no VTE at present -Continue Xarelto 20mg po daily (3) Hypertension: Patient has elevated BP in hospital, prescribed Amlodipine in the past by family doctor but has not been taking it -Resume Amlodipine 5mg po daily -Monitor BP He was strongly advised to saty in hospital for next 2 days. Denied despite multiple counselling. Explained him all consequences of skipping treatment. He is aware he might have progressive BL vision loss, may not get his vision back ever, chance of infection spread and . Total Time Total Time Spent Total Time Spent (In Minutes): See attending's attestation Discharge Plan Discharge Items Patient Disposition: Against Medical Advice Reason For Visit: LEFT EYE VISION LOSS Activity: Per Instructions section Non-emergency contact: Primary Care Provider and Asian Art Curator Follow-up/Referrals: PCPDAVID [Primary Care Provider] - [employer] Provider Instructions: You were admitted to the hospital for evaluation of decreased vision on the left side. You were found to have inflammation of the optic nerve otherwise known as optic neuritis. We started you on high dose steroids - methylprednisolone 1000 mg IV. We discussed plan of care with an boat loader helper who recommended 3 days total of IV steroids and an oral steroid taper upon discharge. They also recommended close follow up with an eye doctor in your home town. You expressed having plans to return to [place] early 10/06. It was strongly recommended that you stay for IV steroids, but you decided to leave AGAINST MEDICAL ADVICE. Paperwork was completed and you did express understanding of the risks of leaving [facility]. You do plan to go to the Emergency Department back in [place] and requested documentation outlining your clinical course here at [facility]. Hospital Course: #Optic Neuritis Patient with a diagnosis of left sided optic neuritis. MRI findings below. ESR slightly elevated at 20. Negative CRP. Ophthalmology consulted. Received dose of 1000 mg IV SoluMedrol around 4 PM 10/05. Would recommend subsequent Q24H dosing with 1 g SoluMedrol x 2 additional doses. Total of 3 days of IV steroids. Would also recommend oral prednisone taper following IV dosing and close follow up with ophthalmology. #VTE history Patient does also have a history of VTE - PE 2016 | DVT 2022. Has been inconsistent in his dosing of Xarelto 20 mg. Expressed having leg cramping. No obvious VTE on doppler. #HTN Previously prescribed amlodipine 10 mg daily, but has not been taking this medication. BP elevated and amlodipine restarted at 5 mg. #Lab abnormalities Mild microcytic anemia at 13.2. Mild leukopenia at 4.33 with normal differential. PT/INR WNL. No other significant abnormalities. #Substance Use Disorder Patient came to [facility] from [facility] rehab. Last use 09/22. No IVDU. MRI Brain 10/05: FINDINGS: Brain Parenchyma: No evidence of acute infarction or hemorrhage. Holland-white matter differentiation is preserved. No abnormal signal-intensity lesions were identified. Post-Contrast Findings: No abnormal enhancement of the brain parenchyma or meninges. Ventricles and Sulci: The ventricular system is within normal limits without evidence of hydroceph alus. Sulci and cisternal spaces are age-appropriate. Brainstem and Cerebellum: Normal appearance of the brainstem and cerebellum without focal lesions or abnormal enhancement. Vessels and venous sinuses: Intracranial vessels appear normal without evidence of vascular malformations or aneurysms. Orbits and Skull Base: Minimal fluid surrounding the distal part of the optic nerve, more on the left seen in T2 [place]. This finding could be related to papilloedema. No evidence of skull vault lesions or abnormal marrow signals within the calvarium. Additional findings: A small retention cyst was seen in the right maxillary sinus, measuring about 1.5 cm. IMPRESSION: 1. Evidence of mainly left optic nerve dural mild fluid. This finding could be related to papilloedema. It needs clinical correlation and further assessment as clinically needed. 2. Unremarkable rest of study. Pending Studies at Discharge: No Stand-Alone Forms: My [employer], Smoking Cessation Medications and DC Order Prescriptions: New amlodipine 5 mg tablet 5 mg PO DAILY Qty: 30 3RF Continued Xarelto 20 mg tablet 20 mg PO DAILY Discharge Orders: Left Against Medical Advice (Routine); Ordered 10/06/24 Ordered By: Kay Alarcon Admission Data Admit Date/Time: 10/04/24 22:01 Attending Provider: Laith Allen Admit Provider: Azeb Pascual Primary Care Provider: PCP,NO Other Providers: Daniel Frye; Azeb Pascual Resident Activity Tracking Resident Involvement: Resident Care Provided Care Provided: Adult [facility] Medicine"
== END 2024-10-06 05:21 | disposition left against medical advice (07) | DRG 123 ==
LOC: ED 16:46 → 2N 22:01 → SUATTDRO 22:01 → 2N 23:08